=== PATIENT | female | born 1935 | race Caucasian/White ===

== ENCOUNTER → 2017-08-27 | Outpatient (CLI) | payer MEDICARE ==
--- NOTE | 2017-08-27 14:25 | RAD ---
DATE: 08/27/2017 EXAM: MAMMO NAKUL SCREENING BILATERAL Bilateral digital screening mammography to include digital breast tomosynthesis (3D mammography) HISTORY: Screening study. COMPARISON: 11/25/2015 This study was interpreted with the benefit of Computerized Aided Detection (CAD). FINDINGS: Digital MLO and CC mammograms of both breasts were obtained. Additionally digital breast tomosynthesis (3D mammography) images of both breasts in the MLO and CC projections were performed. Comparison study is dated 11/25/2015. The breast parenchyma is heterogeneously dense which can obscure a lesion on mammography (breast density code C). No spiculated mass is seen. No malignant appearing calcification or area of architectural distortion is noted. Benign-appearing and vascular calcifications are seen within both breasts. Digital breast tomosynthesis images demonstrate no spiculated mass or malignant appearing calcification. Since the previous examination there has been no significant interval change. IMPRESSION: BI-RADS Category 1, negative. There is no mammographic evidence of malignancy. Routine yearly screening mammography is recommended for follow-up. BI-RADS CATEGORY: 1 NEGATIVE RECOMMENDED FOLLOW-UP: 12M 12 MONTH FOLLOW-UP PQRS compliance statement: Patient information was entered into a reminder system with a target due date 08/27/2018 for the next mammogram. Mammography is a sensitive method for finding small breast cancers, but it does not detect them all and is not a substitute for careful clinical examination. A negative mammogram does not negate a clinically suspicious finding and should not result in delay in biopsying a clinically suspicious abnormality. "Our facility is accredited by the [employer] Mammography Program."
== END | disposition home or self-care (01) ==
LOC: MAMMO 11:43
PROVIDERS: ATTEND Specialist
DX: Z12.31 Encounter for screening mammogram for malignant neoplasm of breast (principal)
CPT/HCPCS: 77063; 77067

== ENCOUNTER → 2019-03-21 | Outpatient (CLI) | payer MEDICARE ==
[2019-03-21 11:23] LABS: ALBUMIN 3.7 g/dL (3.4-5.0); ALBUMIN/GLOBULIN RATIO 1.1 (1.0-1.7); CREATININE 0.8 mg/dL (0.6-1.0); GFR 68.5; POTASSIUM 3.9 mmol/L (3.5-5.1); TOTAL BILIRUBIN 0.6 mg/dL (0.2-1.0)
== END | disposition home or self-care (01) ==
LOC: LAB 10:22
PROVIDERS: ATTEND Internal Medicine Cardiovascular Disease
DX: I25.10 Atherosclerotic heart disease of native coronary artery without angina pectoris (principal)
CPT/HCPCS: 36415; 80053; 80061

== ENCOUNTER → 2019-04-02 | Outpatient (CLI) | payer MEDICARE | END | disposition home or self-care (01) | LOC: US 10:33 | PROVIDERS: ATTEND Internal Medicine Cardiovascular Disease | DX: I87.2 Venous insufficiency (chronic) (peripheral) (principal) | CPT/HCPCS: 93971 ==

== ENCOUNTER → 2019-06-18 | Outpatient (CLI) | payer MEDICARE ==
--- NOTE | 2019-06-18 17:15 | RAD ---
MR#: [id number] Date of Study: 06/18/2019 Ordering Physician: REGINALDO HAYWOOD, Referring Physician: Andie JENNINGS: Cceilia Lamar RDMS RVT APPROVED REPORT Left Lower Extremity Venous Study for DVT Patient Location: OP Indications LEFT ABLATION 2 DAYS AGO Risk Factors On the left, the grayscale images of the common femoral, superficial femoral and popliteal veins do n ot demonstrate any evidence of thrombus and these veins appear to be compressible. The below-knee vei ns again were not well visualized but grossly appear to be compressible. Spectral imaging and color D oppler do not reveal any evidence of obstruction to flow with normal respirophasic variation above th e knee. The below-knee veins demonstrate spontaneous flow. Critical Notification Critical Value: No <Conclusion> 1. Negative for DVT in the LLE 2. Successful L GSV ablation Signed by : Ronald Roa, Electronically Approved : 06/18/2019 17:14:48
== END | disposition home or self-care (01) ==
LOC: US 10:47
PROVIDERS: ATTEND Internal Medicine Cardiovascular Disease
DX: I87.2 Venous insufficiency (chronic) (peripheral) (principal)
CPT/HCPCS: 93971

== ENCOUNTER → 2020-01-28 | Outpatient (CLI) | payer MEDICARE ==
--- NOTE | 2020-01-28 13:11 | CARD ---
MR#: [id number] Date of Study: 01/28/2020 Ordering Physician: MIRZA SINGH, Referring Physician: MIRZA SINGH, Tech: Kylie Hall APPROVED REPORT EXAM: Two-dimensional and M-mode echocardiogram with Doppler and color Doppler. Other Information Quality : AverageHR: 61bpm INDICATION Cardiac Disease: CAD RISK FACTORS Hypertension 2D DIMENSIONS RVDd1.2 (2.9-3.5cm)Left Atrium(2D)3.4 (1.6-4.0cm) IVSd1.0 (0.7-1.1cm)Aortic Root(2D)2.5 (2.0-3.7cm) LVDd4.9 (3.9-5.9cm)LVOT Diameter2.0 (1.8-2.4cm) PWd1.0 (0.7-1.1cm)LVDs2.7 (2.5-4.0cm) FS (%) 44.2 %SV84.4 ml Aortic Valve AoV Peak Trevor.148.7cm/sAoV VTI33.0cm AO Peak GR.5.8mmHgLVOT Peak Trevor.106.0cm/s LVOT VTI 21.65cmAO Mean GR.5mmHg OLMAN (VMAX)2.39ke5FTW (VTI)1.97cm2 Mitral Valve MV E Xerrijdg23.0cm/sMV DECEL XKPO527mw MV A Qajipprz88.9cm/sE/A Ratio0.6 Pulmonary Valve PV Peak Xfbhbeut78.8cm/sPV Peak Grad.3mmHg Tricuspid Valve TR P. Bhkrcsuh412tv/sRAP UGSHBIFV8isEl TR Peak Gr.12obCqNTKG24nmDu Pulmonary Vein S1 Gocsahxg71.4cm/sD2 Jrliqdiz42.1cm/s LEFT VENTRICLE The left ventricle is normal size. There is borderline to mild concentric left ventricular hypertroph y. The left ventricular systolic function is normal and the ejection fraction is within normal range. The Ejection Fraction is 55-60%. Transmitral Doppler flow pattern is Grade I-abnormal relaxation pat tern. RIGHT VENTRICLE The right ventricle is normal size. There is normal right ventricular wall thickness. The right ventr icular systolic function is normal. ATRIA The left atrium size is normal. The right atrium size is normal. The interatrial septum is intact wit h no evidence for an atrial septal defect or patent foramen ovale as noted on 2-D or Doppler imaging. AORTIC VALVE The aortic valve is normal in structure and function. Doppler and Color Flow revealed trace aortic re gurgitation. There is no significant aortic valvular stenosis. MITRAL VALVE The mitral valve is normal in structure and function. There is no evidence of mitral valve prolapse. There is no mitral valve stenosis. Doppler and Color-flow revealed trace mitral regurgitation. TRICUSPID VALVE The tricuspid valve is normal in structure and function. Doppler and Color Flow revealed trace tricus pid regurgitation with an estimated PAP of 30 mmHg. There is no tricuspid valve stenosis. PULMONIC VALVE The pulmonary valve is normal in structure and function. Doppler and Color Flow revealed trace to mil d pulmonic valvular regurgitation. GREAT VESSELS The aortic root is normal in size. The ascending aorta is mildly dilated. The IVC is normal in size a nd collapses >50% with inspiration. PERICARDIAL EFFUSION There is no evidence of significant pericardial effusion. Critical Notification Critical Value: No <Conclusion> The left ventricle is normal size. The left ventricular systolic function is normal and the ejection fraction is within normal range. The Ejection Fraction is 55-60%. There is borderline to mild concentric left ventricular hypertrophy. Doppler and Color Flow revealed trace aortic regurgitation. There is no significant aortic valvular stenosis. Doppler and Color-flow revealed trace mitral regurgitation. Doppler and Color Flow revealed trace tricuspid regurgitation with an estimated PAP of 30 mmHg. The ascending aorta is mildly dilated. Signed by : Frank Collins MD Electronically Approved : 01/28/2020 13:11:14
== END | disposition home or self-care (01) ==
LOC: ECHO 10:56
PROVIDERS: ATTEND Internal Medicine Cardiovascular Disease
DX: I37.1 Nonrheumatic pulmonary valve insufficiency (principal); I51.7 Cardiomegaly; I25.10 Atherosclerotic heart disease of native coronary artery without angina pectoris
CPT/HCPCS: 93306

== ENCOUNTER → 2020-12-21 | Outpatient (CLI) | payer MEDICARE ==
[~2020-12-21] MED LIST: REGADENOSON 0.4 MG/5 ML DISP.SYRIN. IV ONE
--- NOTE | 2020-12-21 18:02 | RAD ---
MR#: [id number] Date of Study: 12/21/2020 Ordering Physician: MIRZA SINGH, Referring Physician: YANELIS BRADY Tech: RT Ulysses (R) (N) APPROVED REPORT Test Type: Pharmacological Stress Nurse/Tech: RT Ulysses (R) (N)/Benitez Delcid Test Indications: CAD Cardiac History: Hypertension Medications: 2 Stents 2016 Resting Heart Rate: 57 bpm Resting Blood Pressure: 179/82mmHg Pretest Chest Pain: None Pharm. Details Pharmacologic stress testing was performed using 0.4mg per 5ml of regadenoson given intravenously ove r 7-10 seconds. Stress Symptoms Pt stated her legs felt martin POST EXERCISE Reason for Termination: Infusion complete Max HR: 122 bpm Max Blood Pressure: 179/82mmHg Blood Pressure response to exercise: Normal blood pressure response during stress. Heart Rate response to exercise: Increased Chest Pain: No. Arrhythmia: No. ST Change: No. INTERPRETATION Stress EKG Conclusion: The resting EKG shows a sinus rhythm with nonspecific ST segment changes and i nferior Q waves. The stress EKG shows no significant changes from baseline. No EKG evidence of stress-induced ischemia. Imaging Protocol IMAGE PROTOCOL: Rest Tc-99m/stress Tc-99m 1 day Rest: Stress: Viability: Radiopharm.Tc99m ZzyhoeundPz41o Sestamibi Losv35oRm 32mCi Duration 15min. 15min. Img Date 12/21/2020 12/21/2020 Inj-Img Hfdn39hod. 60min. Rest Admin Site:IV - Right AntecubitalAdministrator: RT Ulysses (R)(N) Stress Admin Site: IV - Right AntecubitalAdministrator: RT Ulysses (Marisel)(N) STRESS DATA End Diast. Vol.74.0mlAv. Heart Rate69.0bpm End Syst. Vol.17.0mlCO Index BSA0.0L/min Myocardial Ktxq720.0gEject. Hgjkijzi16.0% Stress Rates Pk. Fill Rate2.51EDV/secLVtime Pk. Fill 146.81msec Pk. Empty Rate3.36ESV/secLVtime Pk. Ykpjj528.61msec 1/3 Pk. Fill1.52EDV/sec Stress Scores Regional WT0.00Summed WT0.00 Regional WM1.00Summed WM9.00 LV Perfusion The stress scans show no significant defects. The rest scans show no significant defects. Nuclear imaging shows no reversible ischemia or infarct. Wall Motion Left ventricular systolic function is intact with an ejection fraction of greater than 70%. LV Perf. Quant 17 Seg. SSS4.00 17 Seg. SRS2.00 17 Seg. SDS2.00 Stress Defect Extent (% LAD)13.80Rest Defect Extent (% LAD)11.90Rev. Defect Extent (% LAD)0.60 Stress Defect Extent (% LCX) 0.00Rest Defect Extent (% LCX)0.00Rev. Defect Extent (% LCX)0.00 Stress Defect Extent (% RCA)2.20Rest Defect Extent (% RCA)1.10Rev. Defect Extent (% RCA)0.00 Stress Defect Extent (% THEA)8.50Rest Defect Extent (% THEA)7.20Rev. Defect Extent (% THEA)0.40 Conclusion 1. Mildly abnormal resting EKG with no EKG evidence of stress-induced ischemia. 2. Nuclear imaging shows no reversible ischemia or infarct. 3. Normal left ventricular systolic function with an ejection fraction of greater than 70%. 4. Low risk Lexiscan nuclear stress test. Signed by : Frank Collins MD Electronically Approved : 12/21/2020 18:02:12
== END ==
LOC: NM 08:22
PROVIDERS: ATTEND Internal Medicine Cardiovascular Disease
DX: I25.10 Atherosclerotic heart disease of native coronary artery without angina pectoris (principal); I10 Essential (primary) hypertension
CPT/HCPCS: 78452; 93017; A9500; J2785

== ENCOUNTER → 2021-05-06 | Outpatient (CLI) | payer MEDICARE ==
[~2021-05-06] MED LIST changes: +CASIRIVIMAB/IMDEVIMAB 600/600mg in IV NS TV=50 ML IV ONE; -REGADENOSON 0.4 MG/5 ML DISP.SYRIN. IV ONE
[2021-05-06 15:05] VITALS: BP 132/78
--- NOTE | 2021-05-06 17:15 | NUR ---
Patient arrived to the unit via ambulation to room 103. Patient is alert and oriented. Vital signs obtained and WNL. Peripheral IV was inserted with one attempt. Regeneron infusion was infused with no complications. Patient remained on the unit one hour post infusion. No adverse effects were noted therefore the patient was released to go home. Patient was escorted off the unit by the RN. Patient was transported home in a private vehicle by a family member.
== END | disposition home or self-care (01) ==
LOC: OPINF 14:58
PROVIDERS: ATTEND Physician Assistant
DX: U07.1 COVID-19 (principal); I25.10 Atherosclerotic heart disease of native coronary artery without angina pectoris; I10 Essential (primary) hypertension
CPT/HCPCS: M0243; Q0244; Q0243

== ENCOUNTER → 2021-06-16 | Outpatient (CLI) | payer MEDICARE ==
[2021-05-06 15:05] VITALS: BP 132/78
--- NOTE | 2021-06-16 15:54 | RAD ---
MR#: [id number] Date of Study: 06/16/2021 Ordering Physician: MIRZA ROA, Referring Physician: MIRZA ROA, Tech: Isa Barrett RVT, MS APPROVED REPORT Right Lower Extremity Venous Study for DVT Patient Location: OUT-PATIENT Indications Lower Extremity Edema: On the right the grayscale images of the common femoral, superficial femoral and popliteal veins do n ot demonstrate any evidence of thrombus and these veins appear to be compressible. The below-knee vei ns were not well visualized but grossly appear to be compressible. Spectral imaging and color Doppler do not reveal any evidence of obstruction to flow with normal respirophasic variation above the knee . Below the knee there is spontaneous flow noted. Superficial varicosities in the right lateral knee area consistent with possible superficial thrombos is. No DVT identified. Medications Plavix Vein Imaging (Right) CFV (R): Compressible SFJ (R): Compressible FEM (R): Compressible POP (R): Compressible DFV (R): Compressible PTV (R): Compressible Peroneals (R): Compressible Critical Notification Critical Value: No <Conclusion> 1. No evidence of DVT in the right lower extremity 2. Right lateral superficial varicosities with likely thrombophlebitis Signed by : Mirza Roa, Electronically Approved : 06/16/2021 15:53:43
== END ==
LOC: US 12:10
PROVIDERS: ATTEND Internal Medicine Cardiovascular Disease
DX: I83.91 Asymptomatic varicose veins of right lower extremity (principal); M79.89 Other specified soft tissue disorders
CPT/HCPCS: 93971